=== PATIENT | female | born 2000 | race Caucasian/White ===

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

== ENCOUNTER 2018-09-15 15:00 | Emergency (ER) | payer MEDICAID, OTHER ==
[2018-09-15 15:33] VITALS: BP 111/61
--- NOTE | 2018-09-15 16:02 | UC ---
Throat Pain/Nasal Ronal HPI - History of Current Complaint Chief Complaint: UCRespiratory Stated Complaint: COUGH/SINUSES/BODY ACHES Time Seen by Provider: 09/15/18 15:53 Hx Obtained From: Patient Hx Last Menstrual Period: ON DEPO INJ ?: No Onset/Duration: Sudden Onset, Lasting Weeks - 2 Severity: Moderate Pain Intensity: 5 Associated Signs & Symptoms: Positive: Dysphagia, Sinus Discomfort, Nasal Discharge, Fever - Allergies/Home Medications Allergies/Adverse Reactions: Allergies Allergy/AdvReac Type Severity Reaction Status Date / Time No Known Allergies Allergy Verified 09/15/18 15:30 PMH/Surg Hx/FS Hx/Imm Hx Previously Healthy: Yes - Surgical History Surgical History: None - Family History Known Family History: Positive: Diabetes - Social History Alcohol Use: Occasionally Substance Use Type: Marijuana Substance Use Comment - Amount & Last Used: "every day"; 09/13/18 Smoking Status (MU): Light Every Day Tobacco Smoker Type: Cigarettes Amount Used/How Often: <1/2 PPD Length of Time of Smoking/Using Tobacco: Since Age 14 Household Exposure Type: Cigarettes - Immunization History Most Recent Influenza Vaccination: Not the Season Vaccination Up to Date: Yes Review of Systems All Other Systems Reviewed And Are Negative: Yes Constitutional: Positive: Fever, Fatigue Skin: Positive: Negative Eyes: Positive: Negative ENT: Positive: Sore Throat, Ear Ache, Nasal Discharge, Sinus Congestion, Sinus Pain/Tenderness Respiratory: Positive: Cough Cardiovascular: Positive: Negative Gastrointestinal: Positive: Negative Genitourinary: Positive: Negative Motor: Positive: Negative Neurovascular: Positive: Negative Musculoskeletal: Positive: Negative Neurological: Positive: Headache Psychological: Positive: Negative Is Patient Immunocompromised?: No Physical Exam Triage Information Reviewed: Yes Appearance: Well-Nourished, Ill-Appearing, Pain Distress Vital Signs: Initial Vital Signs Temp 98 F 09/15/18 15:31 Pulse 93 09/15/18 15:31 Resp 16 09/15/18 15:31 BP 111/61 09/15/18 15:31 Pulse Ox 100 09/15/18 15:31 Vital Signs Reviewed: Yes Eye Exam: Normal ENT: Positive: Pharyngeal erythema, Nasal congestion - nares and turbid inflammation, Nasal drainage, TM bulging - bilaterally, Tonsillar swelling Dental Exam: Normal Neck exam: Normal Neck: Positive: Supple, Nontender, No Lymphadenopathy Respiratory Exam: Normal Respiratory: Positive: Chest non-tender, Lungs clear, Normal breath sounds Cardiovascular Exam: Normal Cardiovascular: Positive: RRR, Pulses Normal Bowel Sounds: Positive: Present Musculoskeletal Exam: Normal Neurological Exam: Normal Psychological Exam: Normal Skin Exam: Normal Throat Pain/Nasal Course/Dx - Course Course Of Treatment: hx obtained, exam performed ,meds reviewed, treated for sinusitis and she has not improved with viral symtpoms treatement over the last 2 weeks - Differential Dx/Diagnosis Differential Diagnosis/HQI/PQRI: Laryngitis, Otitis Media, Pharyngitis, Sinusitis, URI Provider Diagnosis: Sinusitis Discharge - Sign-Out/Discharge Documenting (check all that apply): Patient Departure All imaging exams completed and their final reports reviewed: No Studies - Discharge Plan Condition: Stable Disposition: HOME Prescriptions: Azithromyxin ANNA (NF) [Z-Anna (Zithromax) 250 mg tabs #6] 2 tab PO .TODAY, THEN 1 DAILY #6 tab Cetirizine* [ZyrTEC 10 MG TAB*] 10 mg PO DAILY #21 tab Patient Education Materials: Sinusitis (ED) Forms: *Work Release Referrals: ANDRA Machado [Primary Care Provider] - Additional Instructions: 1. take the medication as prescribed. 2. Nasal saline multiple times a day 3. increase fluid intake and get plety of rest. 4. Follow up as needed. - Billing Disposition and Condition Condition: STABLE Disposition: Home - Attestation Statements Provider Attestation: Because the patient is A&Ox3, has no focal neurologic findings, no midline c- spine tenderness, no evidence of intoxication and no painful distracting injuries there is no need to obtain radiographic studies to evaluate the C- spinie.
== END 2018-09-15 16:08 | disposition home or self-care (01) ==
LOC: UCCORT 15:00
DX: J32.9 Chronic sinusitis, unspecified (principal); F17.210 Nicotine dependence, cigarettes, uncomplicated
CPT/HCPCS: 99212; G0463

== ENCOUNTER 2019-06-12 11:37 | Emergency (ER) | payer OTHER ==
--- OUTSIDE RECORDS SUMMARY | 2019-06-12 12:19 | XMS REPORT | Continuity of Care Document ---
:2000 External Reference #:[id number] Author Name Melodie Jiménez MD (transmitted by agent of provider Vickey Kan) Address [address] [place] [address] Care Team Providers Name Role Phone Vijaya Lorenzo MD - Hematology & Care Team Information Psychiatry Instructor Oncology Problems Description No Information Available Social History Type Date Description Comments Sex Unknown ETOH Use Occasionally consumes alcohol Tobacco Use Start: Unknown Light tobacco smoker (10 or fewer cigarettes/day) Smoking Status Reviewed: 06/08/19 Light tobacco smoker (10 or fewer cigarettes/day) Allergies, Adverse Reactions, Alerts Description No Known Drug Allergies Medications Active Medications SIG Qnty Indications Ordering Provider Date Amoxicillin Osvaldo Roy, 500mg DDS Capsules Naproxen Sodium Osvaldo Roy, 550mg DDS Tablets Depo-Provera every three months Unknown 150mg/ml (pt uncertain of Madisyn dose) Immunizations Description No Information Available Vital Signs Date Vital Result Comment 06/08/2019 1:39pm Height 62 inches 5'2" Weight 130.00 lb Heart Rate 76 /min BP Systolic Sitting 120 mmHg BP Diastolic Sitting 76 mmHg Body Temperature 99.0 F BMI (Body Mass Index) 23.8 kg/m2 Results Description No Information Available Procedures Description No Information Available Medical Devices Description No Information Available Encounters Type Date Location Provider Dx Diagnosis Office Visit [facility] Melodie Jiménez MD N64.4 Mastodynia 1:15p Of [facility] Assessments Date Code Description Provider 06/08/2019 N64.4 Mastodynia Melodie Jiménez MD Plan of Treatment Future Appointment(s):06/29/2019 2:30 pm - Melodie Jiménez MD at [facility]06/08/2019 - Melodie Jiménez MDN64.4 MastodyniaFollow up: After sono Functional Status Description No Information Available Mental Status Description No Information Available Referrals Description No Information Available
--- OUTSIDE RECORDS SUMMARY | 2019-06-12 12:19 | XMS REPORT | Continuity of Care Document ---
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 Problems Description No Active Problems Social History Type Date Description Comments Sex Female Tobacco Use Reviewed: 10/01/17 Never Smoked Cigars Tobacco Use Reviewed: 09/30/18 Never Smoked A Pipe Smoking Status Reviewed: 09/30/18 Never Smoked A Pipe Tobacco Use Start: Unknown End: denies IV or snorting drug use Unknown Tobacco Use Reviewed: 09/30/18 Never Used Smokeless Tobacco ETOH Use Occasionally consumes alcohol Recreational Drug Use Regularly uses Marijuana Tobacco Use Reviewed: 09/30/18 Light tobacco smoker (10 or fewer cigarettes/day) Recreational Drug Use Teaching Provided Regarding Naloxone/Narcan Training Available At [facility] Tattoo/Piercing Tattoos unprofessionally done Sun Exposure Uses sunscreen Allergies, Adverse Reactions, Alerts Description No Known Drug Allergies Medications Active Medications SIG Qnty Indications Ordering Date Provider Fluconazole one tab by mouth 2tabs Z11.3 Waleska Salinas, 04/13/2019 150mg every 72 hours x 2 DOUBLE CUTTER Tablets doses Depo-Provera intramuscular every 1ml Z30.42 In Damon Allred MD 04/06/2018 12 weeks til next 150mg/ml Suspension annual History Medications Diflucan one tab orally x 2tabs B37.3 Waleska Salinas NP 10/25/2018 - 150mg one dose. 04/13/2019 Tablets repeat in 7 days. Medications Administered in Office Medication SIG Qnty Indications Ordering Provider Date J-Depo Provera Injection Irma Sanabria 03/28/2019 Injection J-Depo Provera Injection RN Schedule 03/28/2019 Injection J-Depo Provera Injection Waleska Salinas, DOUBLE CUTTER 12/28/2018 Injection J-Depo Provera Injection Janee Bond, TONIA 09/30/2018 Injection J-Depo Provera Injection Irma Sanabria 07/05/2018 Injection J-Depo Provera Injection Tiffanysunny Monroy, DOUBLE CUTTER 04/06/2018 Injection J-Depo Provera Injection Waleska Salinas, DOUBLE CUTTER 01/14/2018 Injection J-Depo Provera Injection Irma Sanabria 10/01/2017 Injection J-Depo Provera Injection Waleska Salinas, DOUBLE CUTTER 07/16/2017 Injection Contraceptive Pills Waleska Salinas, DOUBLE CUTTER 06/14/2017 Control Injection J-Depo Provera Injection Waleska Salinas, DOUBLE CUTTER 04/29/2017 Injection J-Depo Provera Injection Waleska Salinas, DOUBLE CUTTER 04/29/2017 Injection J-Depo Provera Injection RN Schedule 02/11/2017 Injection J-Depo Provera Injection [facility] 11/13/2016 Injection J-Depo Provera Injection Waleska Salinas, DOUBLE CUTTER 08/24/2016 Injection J-Depo Provera Injection [facility] 05/18/2016 Injection J-Depo Provera Injection DOUBLE CUTTER 05/18/2016 Injection J-Depo Provera Injection Tiffany Monroy, DOUBLE CUTTER 02/19/2016 Injection J-Depo Provera Injection Lorelei Kothari, RN 10/28/2015 Injection J-Depo Provera Injection Waleska Salinas, DOUBLE CUTTER 08/08/2015 Injection Immunizations Description No Information Available Vital Signs Date Vital Result Comment 04/13/2019 1:05pm BP Systolic 122 mmHg BP Diastolic 73 mmHg Weight 125.00 lb 03/28/2019 1:06pm BP Systolic 118 mmHg BP Diastolic 70 mmHg Weight 123.00 lb Results Test Date Facility Test Result H/L Range Note Wet Prep.... 04/13/2019 [facility] WBC Smear 0 Clue Cells Vag Fluid Wet Prep 0 Jodi Wet Prep hyphae and buds Lactobacillus Wet Prep few Whiff Wet Prep neg. Bacteria Wet Prep n/a PH Wet Prep 4.5 Misc Other Test no trich seen Chlamydia/N 10/25/2018 Old DO Not Use [facility] CT,Rna,Tma,Urogenital NOT DETECTED Not Detected 1 Gonorroeae Rna Tma Urogenit GC Rna,Tma,Urogen NOT DETECTED Not Detected 2 Wet Prep.... 10/25/2018 [facility] WBC Smear 0 Clue Cells Vag Fluid Wet Prep 0 Jodi Wet Prep hyphae and buds Lactobacillus Wet Prep few Whiff Wet Prep neg. Bacteria Wet Prep n/a PH Wet Prep 7.0 High rbc's Misc Other Test no trich seen 1 This test was performed using the APTIMA COMBO2(R) Assay (GEN-PROBE(R). The analytical performance characteristics of this assay, when used to test SurePath(R) specimens have been determined by [facility]. 2 This test was performed using the APTIMA COMBO2(R) Assay (GEN-PROBE(R). The analytical performance characteristics of this assay, when used to test SurePath(R) specimens have been determined by [facility]. Procedures Date Code Description Status 03/28/2019 00131 Therapeutic, Prophylactic Or Diagnostic Injection Subq/Im Completed 03/28/2019 60782 Therapeutic, Prophylactic Or Diagnostic Injection Subq/Im Completed 12/28/2018 66542 Therapeutic, Prophylactic Or Diagnostic Injection Subq/Im Completed Medical Devices Description No Information Available Encounters Description No Information Available Assessments Date Code Description Provider 04/13/2019 B37.3 Candidiasis of vulva and vagina Waleska Salinas NP 04/13/2019 Z30.42 Encounter for surveillance of injectable Waleska Salinas NP contraceptive 04/13/2019 Z11.3 Encounter for screening for infections with a Waleska Salinas NP predominantly sexual mode of transmission 03/28/2019 Z30.42 Encounter for surveillance of injectable Irma Sanabria contraceptive 03/28/2019 Z30.40 Encounter for surveillance of contraceptives, Irma Sanabria unspecified 03/28/2019 Z30.42 Encounter for surveillance of injectable RN Schedule contraceptive 12/28/2018 Z30.42 Encounter for surveillance of injectable Waleska Sailnas NP contraceptive 12/28/2018 Z30.40 Encounter for surveillance of contraceptives, Waleska Salinas NP unspecified 10/25/2018 B37.3 Candidiasis of vulva and vagina Waleska Salinas NP 10/25/2018 Z30.42 Encounter for surveillance of injectable Waleska Salinas NP contraceptive 10/25/2018 Z11.3 Encounter for screening for infections with a Waleska aSlinas NP predominantly 10/25/2018 Z13.9 Encounter for screening, unspecified Waleska Salinas NP Plan of Treatment 04/13/2019 - Waleska Salinas, NPB37.3 Candidiasis of vulva and vaginaComments: Hyphae seen on wet prep. Treat for Jodi with Diflucan. Reviewed use of, side effects and precautions of medication with patient who states understanding. Instructed patient on genital hygeine.Follow up:F/u if no improvement in symptoms.Z30.42 Encounter for surveillance of injectable contraceptiveComments: Patient is UTD on her DepoZ11.3 Encounter for screening for infections with a predominantly sexual mode of transmissionNew Medication:Fluconazole 150 mg - one tab by mouth every 72 hours x 2 dosesComments:Reviewed STD risks and prevention with patient. Patient states understanding. Functional Status Description No Information Available Mental Status Description No Information Available Referrals Description No Information Available
[2019-06-12 12:30] VITALS: BP 113/56
--- NOTE | 2019-06-12 12:39 | UC ---
Throat Pain/Nasal Ronal HPI - HPI Summary HPI Summary: Pt presents with c/o chest and nasal congestion that has worsened over the last 2 weeks. Pt has been taking OTC dayquil/nightquil with no improvement. Pt occasionally take amox 500 mg with naproxen for dental pain and has been taking 1 tab intermittently over the last 2 weeks. - History of Current Complaint Chief Complaint: UCGeneralIllness Stated Complaint: HEAD COLD Time Seen by Provider: 06/12/19 12:20 Hx Obtained From: Patient Hx Last Menstrual Period: irregular-depo shot ?: No Onset/Duration: Sudden Onset, Lasting Weeks, Still Present, Worse Since - onset Severity: Moderate Pain Intensity: 0 Cough: None Associated Signs & Symptoms: Positive: Sinus Discomfort, Nasal Discharge - Allergies/Home Medications Allergies/Adverse Reactions: Allergies Allergy/AdvReac Type Severity Reaction Status Date / Time No Known Allergies Allergy Verified 06/12/19 12:31 Home Medications: Home Medications Naproxen [Naproxen 500 mg tab] 500 mg PO BID 06/12/19 [History Confirmed ] PMH/Surg Hx/FS Hx/Imm Hx Previously Healthy: Yes - Surgical History Surgical History: None - Family History Known Family History: Positive: Diabetes - Social History Occupation: Employed Full-time Lives: With Family Alcohol Use: Occasionally Substance Use Type: Marijuana Substance Use Comment - Amount & Last Used: "every day"; 09/13/18 Smoking Status (MU): Light Every Day Tobacco Smoker Type: Cigarettes Amount Used/How Often: <1/2 PPD Length of Time of Smoking/Using Tobacco: Since Age 14 Have You Smoked in the Last Year: Yes Household Exposure Type: Cigarettes - Immunization History Most Recent Influenza Vaccination: Not the 2016/2017 Season Vaccination Up to Date: Yes Review of Systems All Other Systems Reviewed And Are Negative: Yes Constitutional: Positive: Chills, Fatigue Skin: Positive: Negative ENT: Positive: Nasal Discharge, Sinus Congestion Respiratory: Positive: Shortness Of Breath, Cough Cardiovascular: Positive: Negative Gastrointestinal: Positive: Negative Genitourinary: Positive: Negative Motor: Positive: Negative Neurovascular: Positive: Negative Musculoskeletal: Positive: Negative Neurological: Positive: Negative Psychological: Positive: Negative Is Patient Immunocompromised?: No Physical Exam Triage Information Reviewed: Yes Appearance: Ill-Appearing Vital Signs: Initial Vital Signs Temp 98.6 F 06/12/19 12:25 Pulse 84 06/12/19 12:25 Resp 16 06/12/19 12:25 BP 113/56 06/12/19 12:25 Pulse Ox 99 06/12/19 12:25 Vital Signs Reviewed: Yes Eye Exam: Normal ENT: Positive: Nasal congestion Dental Exam: Normal Neck exam: Normal Respiratory Exam: Normal Cardiovascular Exam: Normal Musculoskeletal Exam: Normal Neurological Exam: Normal Psychological Exam: Normal Skin Exam: Normal Throat Pain/Nasal Course/Dx - Course Course Of Treatment: I discussed with the pt viral vs bacterial and pt states that she is not getting better and that she "must need something". - Differential Dx/Diagnosis Differential Diagnosis/HQI/PQRI: Influenza, Tonsillitis, URI Provider Diagnosis: Bronchitis Discharge ED - Sign-Out/Discharge Documenting (check all that apply): Patient Departure All imaging exams completed and their final reports reviewed: No Studies - Discharge Plan Condition: Stable Disposition: HOME Prescriptions: Azithromycin TAB* [Zithromax TAB (Z-ANNA) 250 mg #6 tabs] 2 tab PO .TODAY, THEN 1 DAILY #1 anna predniSONE TAB* [Deltasone 10 MG TAB*] 30 mg PO DAILY #12 tab Patient Education Materials: Acute Bronchitis (ED) Referrals: [facility] [place] [facility]FERR[facility] [Outside] - If Needed No Primary Care Phys,NOPCP [Primary Care Provider] - - Billing Disposition and Condition Condition: STABLE Disposition: Home
== END 2019-06-12 12:51 | disposition home or self-care (01) ==
LOC: UCCORT 11:37
DX: J40 Bronchitis, not specified as acute or chronic (principal); R09.81 Nasal congestion; F17.210 Nicotine dependence, cigarettes, uncomplicated
CPT/HCPCS: 99212; G0463

== ENCOUNTER 2019-07-07 07:41 | Emergency (ER) | payer OTHER ==
[2019-07-07 07:53] VITALS: BP 140/68
--- NOTE | 2019-07-07 07:58 | UC ---
UC General HPI - HPI Summary HPI Summary: Pleasant 18 yo female c/o last couple days sore throat, cough, sinus congestion. No rash. Subj fever. Hurts to swallow. Mild cough, no sob. No GI issues. No issues. Unk but possible sick contact. Generally healthy. - History of Current Complaint Chief Complaint: UCGeneralIllness Stated Complaint: SORE THROAT DIZZY HEADACHE Time Seen by Provider: 07/07/19 07:45 Hx Obtained From: Patient Hx Last Menstrual Period: irregular-depo shot Pain Intensity: 5 - Allergy/Home Medications Allergies/Adverse Reactions: Allergies Allergy/AdvReac Type Severity Reaction Status Date / Time No Known Allergies Allergy Verified 07/07/19 07:50 Home Medications: Home Medications Ibuprofen TAB* [Advil TAB*] 2 tab PO ONCE 07/07/19 [History Confirmed 07/07/19] PMH/Surg Hx/FS Hx/Imm Hx Previously Healthy: Yes - Surgical History Surgical History: None - Family History Known Family History: Positive: Diabetes - Social History Alcohol Use: Occasionally Substance Use Type: Marijuana Substance Use Comment - Amount & Last Used: daily Smoking Status (MU): Light Every Day Tobacco Smoker Type: Cigarettes Amount Used/How Often: 1/2 ppd Length of Time of Smoking/Using Tobacco: Since Age 14 Have You Smoked in the Last Year: Yes Household Exposure Type: Cigarettes - Immunization History Most Recent Influenza Vaccination: Not the Season Vaccination Up to Date: Yes Review of Systems All Other Systems Reviewed And Are Negative: Yes Constitutional: Positive: Other - see hpi Skin: Positive: Negative Eyes: Positive: Negative ENT: Positive: Other - see hpi Respiratory: Positive: Other - see hpi Cardiovascular: Positive: Negative Gastrointestinal: Positive: Negative Genitourinary: Positive: Negative Motor: Positive: Negative Neurovascular: Positive: Negative Musculoskeletal: Positive: Negative Neurological: Positive: Negative Psychological: Positive: Negative Is Patient Immunocompromised?: No Physical Exam Triage Information Reviewed: Yes Appearance: Well-Appearing, Well-Nourished Vital Signs: Initial Vital Signs Temp 98.4 F 07/07/19 07:51 Pulse 95 07/07/19 07:51 Resp 14 07/07/19 07:51 BP 140/68 07/07/19 07:51 Pulse Ox 100 07/07/19 07:51 Vital Signs Reviewed: Yes Eye Exam: Normal ENT: Positive: Pharyngeal erythema, Nasal congestion, Nasal drainage, TM dull - TM's dull, chowdhury., Uvula midline, Other - + sinus tenderness subj and congestion Neck exam: Other - mild adenopathy Neck: Positive: Supple, Nontender, Other: - trachea midline Respiratory Exam: Normal Respiratory: Positive: Chest non-tender, Lungs clear, Normal breath sounds, No respiratory distress, No accessory muscle use Cardiovascular Exam: Normal Cardiovascular: Positive: RRR, No Murmur, Pulses Normal, Brisk Capillary Refill Abdominal Exam: Normal Abdomen Description: Positive: Nontender Musculoskeletal Exam: Normal Neurological Exam: Normal - grossly nonfocal Psychological Exam: Normal - nad Skin Exam: Normal - no visible or reported rash, nondiaphoretic Course/Dx - Course Course Of Treatment: RST neg. Cx sent. Reviewed coa / tx plan. S/sx c/w sinusisitis with 2ndary pharyngitis. Howeve, if no improvement, consider check hx mononucleosis. Questions as posed answered to the best of my ability. - Diagnoses Provider Diagnosis: Pharyngitis, Sinusitis Discharge ED - Sign-Out/Discharge Documenting (check all that apply): Patient Departure All imaging exams completed and their final reports reviewed: No Studies - Discharge Plan Condition: Stable Disposition: HOME Prescriptions: Azithromycin TAB* [Zithromax TAB (Z-ANNA) 250 mg #6 tabs] 2 tab PO .TODAY, THEN 1 DAILY #1 anna Patient Education Materials: Pharyngitis (ED), Sinusitis (ED) Referrals: No Primary Care Phys,NOPCP [Primary Care Provider] - Additional Instructions: Throat culture in the lab. You will be notified if positive, requiring antibiotic modification. Yogurt and / or probiotic daily at least during the antibiotic course (10 days in this case). Follow up with your doctor, per routine. Please seek medical attention for worse or new problems. - Billing Disposition and Condition Condition: STABLE Disposition: Home
== END 2019-07-07 08:39 | disposition home or self-care (01) ==
LOC: UCCORT 07:41
DX: J02.9 Acute pharyngitis, unspecified (principal); J32.9 Chronic sinusitis, unspecified; F17.210 Nicotine dependence, cigarettes, uncomplicated
CPT/HCPCS: 87070; 87651; 99212; G0463